=== PATIENT | female | born 1995 | race Caucasian/White ===

== ENCOUNTER → 2018-05-22 | Outpatient (CLI) | payer OTHER ==
--- NOTE | 2018-05-22 09:06 | US ---
EXAMINATION TYPE: US abdomen limited DATE OF EXAM: 05/22/2018 COMPARISON: NONE CLINICAL HISTORY: K42.9 Umbilical hernia without obstruction or gang. Right and left umbilicus scanned at patients area of pain. No hernia detected with ultrasound IMPRESSION: No evidence for hernia at this time.
== END | disposition home or self-care (01) ==
LOC: RADUSWWP 08:11
PROVIDERS: ATTEND Family Medicine
DX: K42.9 Umbilical hernia without obstruction or gangrene (principal)
CPT/HCPCS: 76705